=== PATIENT | female | born 1975 | race Caucasian/White ===

== ENCOUNTER 2017-07-03 21:24 | Emergency (ER) | payer OTHER ==
[~2017-07-03] VITALS: Ht 172.7 cm; Wt 59.0 kg
[~2017-07-03 21:24] MED LIST: ALBUTEROL0.63 MG/3; LANTUS 3ML100 UNITS/ SC; MICARDIS20 MG PO; NORCO 10-325 T1 EACH PO; PROAIR HFA INH8.5 GM; ULTRAM 50MG50 MG PO
[2017-07-03 22:36] LABS: STREPTOCOCCUS GRP A ANTIGEN NEGATIVE (NEGATIVE)
--- NOTE | 2017-07-03 22:42 | Diagnostic Imaging Report ---
CHEST 2 VIEWS, Technique: CHEST 2 VIEWS Comparison: 12/09/2016 Clinical history: Chest pain DISCUSSION: Normal appearance of the heart, mediastinum, lungs and pleural spaces. Clips overlie the upper abdomen. IMPRESSION: No acute abnormality Signed by: Dr Shazia Clemens MD on 07/03/2017 10:39 PM
[2017-07-03 22:49] LABS: INFLUENZAE A&B ANTIGEN (RAPID) NEGATIVE (NEGATIVE)
[2017-07-03 23:12] VITALS: BP 118/99
== END 2017-07-03 23:21 | disposition home or self-care (01) ==
LOC: ER 21:24
DX: R50.9 Fever, unspecified (principal); R05 Cough; J20.9 Acute bronchitis, unspecified; I10 Essential (primary) hypertension; E11.9 Type 2 diabetes mellitus without complications; J45.909 Unspecified asthma, uncomplicated; M54.9 Dorsalgia, unspecified; G89.29 Other chronic pain
CPT/HCPCS: 71020; 83518; 87070; 87400; 93005; 99284